=== PATIENT | male | born 1965 | race Caucasian/White ===

== ENCOUNTER 2017-06-01 13:04 | Emergency (ER) | payer MEDICARE, BC ==
[2017-06-01] MEDS: ONDANSETRON 4 MG INJ IV ×2 (16:10→19:11)
[2017-06-01] MEDS: morphine 4 MG/ML VIAL IV (16:10)
[2017-06-01 16:30] LABS: ADD MAN DIFF? NO
[2017-06-01 16:39] LABS: BASOPHILS % 0.5 % (0.0-2.0); EOSINOPHILS # 0.3 10^3/ul (0.0-0.5); EOSINOPHILS % 4.1 % (0.0-7.0); HEMATOCRIT 36.7 % (42.0-52.0); HEMOGLOBIN 12.3 g/dl (14.0-18.0); LYMPHOCYTES # 1.3 10^3/ul (0.8-2.9); LYMPHOCYTES % 16.3 % (15.0-51.0); MEAN CORPUSCULAR HEMOGLOBIN 32.4 pg (29.0-33.0); MEAN CORPUSCULAR HGB CONC 33.5 g/dl (32.0-37.0); MEAN CORPUSCULAR VOLUME 96.6 fl (82.0-101.0); MONOCYTE # 0.9 10^3/ul (0.3-0.9); MONOCYTES % 11.1 % (0.0-11.0); NEUTROPHIL # 5.3 10^3/ul (1.6-7.5); NEUTROPHILS % 67.7 % (39.0-77.0); PLATELET COUNT 188 10^3/UL (140-415); RED CELL DISTRIBUTION WIDTH 14.8 % (11.5-14.5)
[2017-06-01 16:39] LABS: WHITE BLOOD COUNT 7.8 10^3/ul (4.8-10.8)
[2017-06-01 17:02] LABS: INR 0.91; PROTIME 12.3 Sec (11.9-14.9)
[2017-06-01 17:03] LABS: PARTIAL THROMBOPLASTIN TIME 26.9 Sec (25.0-35.0)
[2017-06-01 17:07] LABS: ALANINE AMINOTRANSFERASE 46 IU/L (13-69); ALBUMIN 4.9 g/dl (3.3-4.9); ALKALINE PHOSPHATASE 121 IU/L (42-121); AMYLASE 111 U/L (11-123); ANION GAP 21 (8-16); ASPARTATE AMINO TRANSFERASE 34 IU/L (15-46); BLOOD UREA NITROGEN 21 mg/dl (7-20); CALCIUM 9.1 mg/dl (8.4-10.2); CARBON DIOXIDE 25 mmol/L (21-31); CHLORIDE 93 mmol/L (97-110); CREATININE 4.18 mg/dl (0.61-1.24); GLUCOSE 234 mg/dl (70-220); LIPASE 126 U/L (23-300); POTASSIUM 3.8 mmol/L (3.5-5.1); SODIUM 135 mmol/L (135-144); TOTAL PROTEIN 8.4 g/dl (6.1-8.1)
[2017-06-01 17:39] LABS: TROPONIN-I < 0.012 ng/ml (0.00-0.12)
[2017-06-01] MEDS: HYDROmorphONE 1 MG/ML SYG IV (19:11)
== END 2017-06-01 19:51 | disposition home or self-care (01) ==
LOC: E/R 13:04
DX: R10.12 Left upper quadrant pain (principal); E11.65 Type 2 diabetes mellitus with hyperglycemia; I12.0 Hypertensive chronic kidney disease with stage 5 chronic kidney disease or end stage renal disease; N18.6 End stage renal disease; Z79.82 Long term (current) use of aspirin; Z99.2 Dependence on renal dialysis
CPT/HCPCS: 74176; 80053; 82150; 83690; 84484; 85025; 85610; 85730; 93005; 96374; 96375; 96376; 99285-25

== ENCOUNTER 2017-08-21 20:31 | Inpatient (IN) | payer MEDICARE, BC ==
[2017-08-21] MEDS ORDERED: SOD CHLORIDE 0.9% 1,000 ML IV (21:01)
[2017-08-21] MEDS: ASPIRIN 325 MG TAB PO (21:19)
[2017-08-21] MEDS: morphine 4 MG/ML VIAL IV (21:19)
[2017-08-21] MEDS: ONDANSETRON 4 MG INJ IV (21:19)
[2017-08-21 21:36] LABS: ADD MAN DIFF? NO
[2017-08-21 21:44] LABS: WHITE BLOOD COUNT 7.5 10^3/ul (4.8-10.8)
[2017-08-21 21:44] LABS: BASOPHIL # 0.1 10^3/ul (0.0-0.1); BASOPHILS % 0.7 % (0.0-2.0); EOSINOPHILS # 0.3 10^3/ul (0.0-0.5); EOSINOPHILS % 3.8 % (0.0-7.0); HEMATOCRIT 34.6 % (42.0-52.0); HEMOGLOBIN 11.3 g/dl (14.0-18.0); LYMPHOCYTES # 1.5 10^3/ul (0.8-2.9); LYMPHOCYTES % 20.1 % (15.0-51.0); MEAN CORPUSCULAR HEMOGLOBIN 34.1 pg (29.0-33.0); MEAN CORPUSCULAR HGB CONC 32.7 g/dl (32.0-37.0); MEAN CORPUSCULAR VOLUME 104.5 fl (82.0-101.0); MEAN PLATELET VOLUME 10.4 fl (7.4-10.4); MONOCYTE # 0.9 10^3/ul (0.3-0.9); MONOCYTES % 12.5 % (0.0-11.0); NEUTROPHIL # 4.7 10^3/ul (1.6-7.5); NEUTROPHILS % 62.6 % (39.0-77.0); PLATELET COUNT 204 10^3/UL (140-415); RED BLOOD COUNT 3.31 10^6/ul (4.70-6.10); RED CELL DISTRIBUTION WIDTH 17.6 % (11.5-14.5)
[2017-08-21 21:56] LABS: INR 0.94; PROTIME 12.7 Sec (11.9-14.9)
[2017-08-21 21:57] LABS: PARTIAL THROMBOPLASTIN TIME 26.9 Sec (25.0-35.0)
[2017-08-21 22:00] LABS: ALANINE AMINOTRANSFERASE 25 IU/L (13-69); ALBUMIN 4.7 g/dl (3.3-4.9); ALBUMIN/GLOBULIN RATIO 1.38; ALKALINE PHOSPHATASE 90 IU/L (42-121); ANION GAP 23 (8-16); ASPARTATE AMINO TRANSFERASE 22 IU/L (15-46); BILIRUBIN,INDIRECT 0.1 mg/dl (0-1.1); BILIRUBIN,TOTAL 0.1 mg/dl (0.2-1.3); BLOOD UREA NITROGEN 45 mg/dl (7-20); CALCIUM 9.4 mg/dl (8.4-10.2); CARBON DIOXIDE 25 mmol/L (21-31); CHLORIDE 95 mmol/L (97-110); CREATINE KINASE 108 IU/L (23-200); GLUCOSE 164 mg/dl (70-220); POTASSIUM 4.1 mmol/L (3.5-5.1); SODIUM 139 mmol/L (135-144); TOTAL PROTEIN 8.1 g/dl (6.1-8.1)
[2017-08-21 22:11] LABS: B-TYPE NATRIURETIC PEPTIDE 5810 PG/ML (0-125); CK INDEX 1.9; CK-MB 2.05 ng/ml (0.0-2.4); TROPONIN-I 0.012 ng/ml (0.00-0.12)
[2017-08-21] MEDS ORDERED: ACETAMINOPHEN 325 MG TAB PO ×2 (23:00)
[2017-08-21] MEDS ORDERED: ONDANSETRON 4 MG INJ IV ×2 (23:00)
[2017-08-21] MEDS ORDERED: NACL 0.9% 3 ML SYG IV (23:00)
[2017-08-22] MEDS: morphine 2 MG INJ IV (04:45)
[2017-08-22] MEDS ORDERED: NITROGLYCERIN (SL) 0.4 MG TAB (05:26)
[2017-08-22] MEDS: NITROGLYCERIN (SL) 0.4 MG TAB SL (05:33)
[2017-08-22 06:16] LABS: ADD MAN DIFF? NO
[2017-08-22 06:36] LABS: WHITE BLOOD COUNT 7.5 10^3/ul (4.8-10.8)
[2017-08-22 06:36] LABS: BASOPHILS % 0.5 % (0.0-2.0); EOSINOPHILS # 0.3 10^3/ul (0.0-0.5); EOSINOPHILS % 3.4 % (0.0-7.0); HEMATOCRIT 32.9 % (42.0-52.0); HEMOGLOBIN 10.8 g/dl (14.0-18.0); LYMPHOCYTES # 1.5 10^3/ul (0.8-2.9); LYMPHOCYTES % 20.4 % (15.0-51.0); MEAN CORPUSCULAR HEMOGLOBIN 34.4 pg (29.0-33.0); MEAN CORPUSCULAR HGB CONC 32.8 g/dl (32.0-37.0); MEAN CORPUSCULAR VOLUME 104.8 fl (82.0-101.0); MEAN PLATELET VOLUME 10.6 fl (7.4-10.4); MONOCYTE # 0.8 10^3/ul (0.3-0.9); NEUTROPHIL # 4.9 10^3/ul (1.6-7.5); NEUTROPHILS % 64.4 % (39.0-77.0); PLATELET COUNT 204 10^3/UL (140-415); RED BLOOD COUNT 3.14 10^6/ul (4.70-6.10); RED CELL DISTRIBUTION WIDTH 17.7 % (11.5-14.5)
[2017-08-22 06:57] LABS: D-DIMER 533.64 ng/ml (<460)
[2017-08-22 07:29] LABS: CREATINE KINASE 81 IU/L (23-200)
[2017-08-22 07:32] LABS: ALANINE AMINOTRANSFERASE 24 IU/L (13-69); ALBUMIN 4.5 g/dl (3.3-4.9); ALBUMIN/GLOBULIN RATIO 1.73; ALKALINE PHOSPHATASE 79 IU/L (42-121); ANION GAP 24 (8-16); ASPARTATE AMINO TRANSFERASE 18 IU/L (15-46); BLOOD UREA NITROGEN 51 mg/dl (7-20); CALCIUM 9.5 mg/dl (8.4-10.2); CARBON DIOXIDE 28 mmol/L (21-31); CHLORIDE 96 mmol/L (97-110); CHOL/HDL RATIO 2.6 RATIO; CHOLESTEROL 102 mg/dl (100-200); CK INDEX 2.2; CREATININE 9.79 mg/dl (0.61-1.24); GLUCOSE 103 mg/dl (70-220); HDL CHOLESTEROL 38 mg/dl (28-71); LDL CHOLESTEROL,CALCULATED 19 mg/dl; MAGNESIUM 2.8 mg/dl (1.7-2.5); POTASSIUM 4.9 mmol/L (3.5-5.1); SODIUM 143 mmol/L (135-144); TOTAL PROTEIN 7.1 g/dl (6.1-8.1); TRIGLYCERIDES 227 mg/dl (0-149); TROPONIN-I 0.017 ng/ml (0.00-0.12)
[2017-08-22 07:36] LABS: CK-MB 1.75 ng/ml (0.0-2.4)
[2017-08-22 09:00] LABS: FOLATE > 20.0 ng/ml (2.8-20.0)
[2017-08-22 10:18] LABS: HEMOGLOBIN A1C 5.5 % (0-5.9)
[2017-08-22] MEDS: AMLODIPINE 10 MG TAB PO (10:54)
[2017-08-22] MEDS: CALCITRIOL 0.25 MCG CAP PO (10:54)
[2017-08-22] MEDS: CLOPIDOGREL 75 MG TAB PO (10:55)
[2017-08-22] MEDS: ASPIRIN (EC) 81 MG TAB PO (10:55)
[2017-08-22] MEDS: FAMOTIDINE 20 MG TAB PO (10:55)
[2017-08-22] MEDS: CALCIUM ACETATE 667 MG CAP PO ×2 (12:06→21:46)
[2017-08-22] MEDS: SEVELAMER CARBONATE 0.8 GM PKT PO ×2 (12:10→21:47)
[2017-08-22 13:09] LABS: CREATINE KINASE 81 IU/L (23-200)
[2017-08-22 13:24] LABS: CK-MB 1.65 ng/ml (0.0-2.4); TROPONIN-I < 0.012 ng/ml (0.00-0.12)
[2017-08-22 15:08] LABS: HEPATITIS B SURFACE ANTIGEN NEGATIVE (NEGATIVE)
[2017-08-22] MEDS: METOPROLOL 5 MG INJ IV (18:02)
[2017-08-22] MEDS: IODIXANOL LOCM 50 ML BTL (18:19)
[2017-08-22] MEDS: METOPROLOL 100 MG TAB (19:03)
[2017-08-22] MEDS: METOPROLOL 50 MG TAB PO (19:04)
[2017-08-22] MEDS: DILTIAZEM 25 MG INJ IV ×2 (20:13→20:27)
[2017-08-22] MEDS: SOD CHLORIDE 0.9% 100 ML (21:00)
[2017-08-22] MEDS: IODIXANOL LOCM 100 ML BTL (21:00)
[2017-08-22] MEDS: NITROGLYCERIN AEROSOL (4.9 GM) (21:06)
[2017-08-22] MEDS: ATORVASTATIN 20 MG TAB PO (21:45)
[2017-08-22] MEDS: DOCUSATE SODIUM 100 MG CAP PO (21:46)
[2017-08-22] MEDS: METOPROLOL 25 MG TAB PO (21:50)
[2017-08-22] MEDS: HEPARIN 5,000 UNIT/0.5 ML VIAL SC (21:53)
[2017-08-23] MEDS: EPOETIN 3000 UNITS/1 ML INJ (ESRD) SC (00:14)
[2017-08-23 07:32] LABS: ADD MAN DIFF? NO
[2017-08-23 07:39] LABS: WHITE BLOOD COUNT 7.6 10^3/ul (4.8-10.8)
[2017-08-23 07:39] LABS: BASOPHILS % 0.5 % (0.0-2.0); EOSINOPHILS # 0.2 10^3/ul (0.0-0.5); EOSINOPHILS % 2.8 % (0.0-7.0); HEMATOCRIT 34.1 % (42.0-52.0); HEMOGLOBIN 11.4 g/dl (14.0-18.0); LYMPHOCYTES # 1.2 10^3/ul (0.8-2.9); LYMPHOCYTES % 16.1 % (15.0-51.0); MEAN CORPUSCULAR HEMOGLOBIN 34.7 pg (29.0-33.0); MEAN CORPUSCULAR HGB CONC 33.4 g/dl (32.0-37.0); MEAN CORPUSCULAR VOLUME 103.6 fl (82.0-101.0); MEAN PLATELET VOLUME 10.8 fl (7.4-10.4); MONOCYTES % 13.8 % (0.0-11.0); NEUTROPHILS % 66.7 % (39.0-77.0); PLATELET COUNT 218 10^3/UL (140-415); RED BLOOD COUNT 3.29 10^6/ul (4.70-6.10); RED CELL DISTRIBUTION WIDTH 17.5 % (11.5-14.5)
[2017-08-23 08:03] LABS: ANION GAP 20 (8-16); BLOOD UREA NITROGEN 38 mg/dl (7-20); CALCIUM 9.4 mg/dl (8.4-10.2); CARBON DIOXIDE 26 mmol/L (21-31); CHLORIDE 98 mmol/L (97-110); GLUCOSE 103 mg/dl (70-220); POTASSIUM 4.7 mmol/L (3.5-5.1); SODIUM 139 mmol/L (135-144)
[2017-08-23 08:04] LABS: MAGNESIUM 2.4 mg/dl (1.7-2.5)
[2017-08-23 08:04] LABS: PHOSPHORUS 4.7 mg/dl (2.5-4.9)
[2017-08-23] MEDS: DOCUSATE SODIUM 100 MG CAP PO ×2 (08:39→21:15)
[2017-08-23] MEDS: CLOPIDOGREL 75 MG TAB PO (08:40)
[2017-08-23] MEDS: AMLODIPINE 10 MG TAB PO (08:40)
[2017-08-23] MEDS: METOPROLOL 25 MG TAB PO ×2 (08:42→21:14)
[2017-08-23] MEDS: ASPIRIN (EC) 81 MG TAB PO (08:43)
[2017-08-23] MEDS: FAMOTIDINE 20 MG TAB PO (08:43)
[2017-08-23] MEDS: SEVELAMER CARBONATE 0.8 GM PKT PO ×3 (08:43→18:04)
[2017-08-23] MEDS: HEPARIN 5,000 UNIT/0.5 ML VIAL SC ×2 (08:50→21:22)
[2017-08-23] MEDS: CALCIUM ACETATE 667 MG CAP PO ×3 (09:51→18:05)
[2017-08-23] MEDS: CALCITRIOL 0.25 MCG CAP PO (09:51)
[2017-08-23] MEDS: morphine 2 MG INJ IV ×2 (09:53→21:45)
[2017-08-23] MEDS: ISOSORBIDE MONONITRATE(SR)30 MG TAB PO (12:25)
[2017-08-23] MEDS: ATORVASTATIN 20 MG TAB PO (21:15)
[2017-08-24 08:06] LABS: ADD MAN DIFF? NO
[2017-08-24 08:11] LABS: WHITE BLOOD COUNT 6.9 10^3/ul (4.8-10.8)
[2017-08-24 08:11] LABS: BASOPHILS % 0.3 % (0.0-2.0); EOSINOPHILS # 0.3 10^3/ul (0.0-0.5); EOSINOPHILS % 3.8 % (0.0-7.0); HEMATOCRIT 32.2 % (42.0-52.0); HEMOGLOBIN 10.8 g/dl (14.0-18.0); LYMPHOCYTES # 1.3 10^3/ul (0.8-2.9); LYMPHOCYTES % 18.7 % (15.0-51.0); MEAN CORPUSCULAR HEMOGLOBIN 34.8 pg (29.0-33.0); MEAN CORPUSCULAR HGB CONC 33.5 g/dl (32.0-37.0); MEAN CORPUSCULAR VOLUME 103.9 fl (82.0-101.0); MEAN PLATELET VOLUME 10.4 fl (7.4-10.4); MONOCYTES % 15.2 % (0.0-11.0); NEUTROPHIL # 4.2 10^3/ul (1.6-7.5); NEUTROPHILS % 61.9 % (39.0-77.0); PLATELET COUNT 221 10^3/UL (140-415); RED CELL DISTRIBUTION WIDTH 17.5 % (11.5-14.5)
[2017-08-24 08:25] LABS: ANION GAP 22 (8-16); BLOOD UREA NITROGEN 52 mg/dl (7-20); CALCIUM 9.4 mg/dl (8.4-10.2); CARBON DIOXIDE 27 mmol/L (21-31); CHLORIDE 95 mmol/L (97-110); CREATININE 10.28 mg/dl (0.61-1.24); GLUCOSE 130 mg/dl (70-220); POTASSIUM 4.6 mmol/L (3.5-5.1); SODIUM 139 mmol/L (135-144)
[2017-08-24 08:27] LABS: MAGNESIUM 2.6 mg/dl (1.7-2.5)
[2017-08-24] MEDS: DOCUSATE SODIUM 100 MG CAP PO ×2 (08:52→20:31)
[2017-08-24] MEDS: SEVELAMER CARBONATE 0.8 GM PKT PO ×3 (08:52→17:38)
[2017-08-24] MEDS: CALCITRIOL 0.25 MCG CAP PO (08:52)
[2017-08-24] MEDS: CLOPIDOGREL 75 MG TAB PO (08:52)
[2017-08-24] MEDS: AMLODIPINE 10 MG TAB PO (08:53)
[2017-08-24] MEDS: ASPIRIN (EC) 81 MG TAB PO (08:54)
[2017-08-24] MEDS: FAMOTIDINE 20 MG TAB PO (08:54)
[2017-08-24] MEDS: ISOSORBIDE MONONITRATE(SR)30 MG TAB PO (08:54)
[2017-08-24] MEDS: HEPARIN 5,000 UNIT/0.5 ML VIAL SC ×2 (08:55→20:36)
[2017-08-24] MEDS: CALCIUM ACETATE 667 MG CAP PO ×3 (08:55→17:38)
[2017-08-24] MEDS: morphine 2 MG INJ IV (08:56)
[2017-08-24] MEDS: METOPROLOL 25 MG TAB PO ×2 (08:59→20:32)
[2017-08-24] MEDS: ATORVASTATIN 20 MG TAB PO (20:31)
[2017-08-25] MEDS: morphine 2 MG INJ IV (06:01)
[2017-08-25 06:26] LABS: ADD MAN DIFF? NO
[2017-08-25 06:29] LABS: WHITE BLOOD COUNT 7.7 10^3/ul (4.8-10.8)
[2017-08-25 06:29] LABS: BASOPHILS % 0.4 % (0.0-2.0); EOSINOPHILS # 0.3 10^3/ul (0.0-0.5); EOSINOPHILS % 3.6 % (0.0-7.0); HEMOGLOBIN 10.3 g/dl (14.0-18.0); LYMPHOCYTES # 1.1 10^3/ul (0.8-2.9); LYMPHOCYTES % 13.7 % (15.0-51.0); MEAN CORPUSCULAR HEMOGLOBIN 34.4 pg (29.0-33.0); MEAN CORPUSCULAR HGB CONC 33.2 g/dl (32.0-37.0); MEAN CORPUSCULAR VOLUME 103.7 fl (82.0-101.0); MEAN PLATELET VOLUME 10.7 fl (7.4-10.4); MONOCYTE # 0.9 10^3/ul (0.3-0.9); NEUTROPHIL # 5.4 10^3/ul (1.6-7.5); NEUTROPHILS % 70.2 % (39.0-77.0); NUCLEATED RED BLOOD CELLS% 0.3 /100WBC (0.0-0.0); PLATELET COUNT 236 10^3/UL (140-415); RED BLOOD COUNT 2.99 10^6/ul (4.70-6.10); RED CELL DISTRIBUTION WIDTH 17.6 % (11.5-14.5)
[2017-08-25] MEDS: HEPARIN 5,000 UNIT/0.5 ML VIAL SC ×2 (07:06→22:00)
[2017-08-25 07:18] LABS: ANION GAP 23 (8-16); BLOOD UREA NITROGEN 62 mg/dl (7-20); CALCIUM 9.4 mg/dl (8.4-10.2); CARBON DIOXIDE 26 mmol/L (21-31); CHLORIDE 92 mmol/L (97-110); CREATININE 12.21 mg/dl (0.61-1.24); GLUCOSE 125 mg/dl (70-220); SODIUM 136 mmol/L (135-144)
[2017-08-25 07:20] LABS: PHOSPHORUS 4.6 mg/dl (2.5-4.9)
[2017-08-25 07:20] LABS: MAGNESIUM 2.6 mg/dl (1.7-2.5)
[2017-08-25] MEDS: SEVELAMER CARBONATE 0.8 GM PKT PO ×3 (07:55→17:55)
[2017-08-25] MEDS: ISOSORBIDE MONONITRATE(SR)30 MG TAB PO ×2 (09:00→18:24)
[2017-08-25] MEDS: AMLODIPINE 10 MG TAB PO (09:00)
[2017-08-25] MEDS: CLOPIDOGREL 75 MG TAB PO (09:00)
[2017-08-25] MEDS: METOPROLOL 25 MG TAB PO ×2 (09:00→18:23)
[2017-08-25] MEDS: CALCITRIOL 0.25 MCG CAP PO (10:02)
[2017-08-25] MEDS: ASPIRIN (EC) 81 MG TAB PO (10:02)
[2017-08-25] MEDS: FAMOTIDINE 20 MG TAB PO (10:02)
[2017-08-25] MEDS: CALCIUM ACETATE 667 MG CAP PO ×3 (10:03→17:55)
[2017-08-25] MEDS: DOCUSATE SODIUM 100 MG CAP PO ×2 (10:03→21:48)
[2017-08-25] MEDS ORDERED: HEPARIN 1000 UNITS/ML 10 ML INJ (16:04)
[2017-08-25] MEDS ORDERED: IODIXANOL LOCM 100 ML BTL (16:04)
[2017-08-25] MEDS ORDERED: LIDOCAINE 1% (MDV) 20 ML INJ (16:04)
[2017-08-25] MEDS ORDERED: FENTAnyl 50 MCG/ML VIAL (16:05)
[2017-08-25] MEDS ORDERED: VERAPAMIL 5 MG INJ (16:05)
[2017-08-25] MEDS ORDERED: MIDAZOLAM 1 MG/ML 2 ML INJ (16:05)
[2017-08-25] MEDS ORDERED: NITROGLYCERIN (IC) 100 MCG/ML INJ ×2 (16:05→16:07)
[2017-08-25] MEDS ORDERED: morphine 2 MG INJ IV (17:00)
[2017-08-25] MEDS: ATORVASTATIN 20 MG TAB PO (21:48)
[2017-08-26] MEDS: SEVELAMER CARBONATE 0.8 GM PKT PO ×3 (08:12→17:00)
[2017-08-26] MEDS: ASPIRIN (EC) 81 MG TAB PO (08:13)
[2017-08-26] MEDS: DOCUSATE SODIUM 100 MG CAP PO ×2 (08:13→20:32)
[2017-08-26] MEDS: FAMOTIDINE 20 MG TAB PO (08:13)
[2017-08-26] MEDS: CALCITRIOL 0.25 MCG CAP PO (08:13)
[2017-08-26] MEDS: CLOPIDOGREL 75 MG TAB PO (08:14)
[2017-08-26] MEDS: AMLODIPINE 10 MG TAB PO (08:15)
[2017-08-26] MEDS: CALCIUM ACETATE 667 MG CAP PO ×3 (08:15→17:00)
[2017-08-26] MEDS: METOPROLOL 25 MG TAB PO ×2 (08:15→20:31)
[2017-08-26] MEDS: HEPARIN 5,000 UNIT/0.5 ML VIAL SC ×2 (08:32→20:39)
[2017-08-26 15:57] LABS: ADD MAN DIFF? NO
[2017-08-26 16:18] LABS: ANION GAP 23 (8-16); BLOOD UREA NITROGEN 44 mg/dl (7-20); CALCIUM 9.7 mg/dl (8.4-10.2); CARBON DIOXIDE 29 mmol/L (21-31); CHLORIDE 92 mmol/L (97-110); CREATININE 10.41 mg/dl (0.61-1.24); GLUCOSE 133 mg/dl (70-220); POTASSIUM 5.3 mmol/L (3.5-5.1); SODIUM 139 mmol/L (135-144)
[2017-08-26 16:26] LABS: WHITE BLOOD COUNT 8.7 10^3/ul (4.8-10.8)
[2017-08-26 16:26] LABS: BASOPHIL # 0.1 10^3/ul (0.0-0.1); BASOPHILS % 0.6 % (0.0-2.0); EOSINOPHILS # 0.3 10^3/ul (0.0-0.5); EOSINOPHILS % 2.9 % (0.0-7.0); HEMATOCRIT 36.6 % (42.0-52.0); HEMOGLOBIN 11.9 g/dl (14.0-18.0); LYMPHOCYTES # 1.3 10^3/ul (0.8-2.9); LYMPHOCYTES % 15.2 % (15.0-51.0); MEAN CORPUSCULAR HEMOGLOBIN 34.6 pg (29.0-33.0); MEAN CORPUSCULAR HGB CONC 32.5 g/dl (32.0-37.0); MEAN CORPUSCULAR VOLUME 106.4 fl (82.0-101.0); MEAN PLATELET VOLUME 10.2 fl (7.4-10.4); MONOCYTES % 11.5 % (0.0-11.0); NEUTROPHIL # 6.1 10^3/ul (1.6-7.5); NEUTROPHILS % 69.5 % (39.0-77.0); PLATELET COUNT 290 10^3/UL (140-415); RED BLOOD COUNT 3.44 10^6/ul (4.70-6.10); RED CELL DISTRIBUTION WIDTH 17.9 % (11.5-14.5)
[2017-08-26] MEDS: ATORVASTATIN 20 MG TAB PO (20:31)
[2017-08-27] MEDS: hydrALAzine 20 MG INJ IV (04:58)
[2017-08-27 07:01] LABS: ADD MAN DIFF? NO
[2017-08-27 07:04] LABS: WHITE BLOOD COUNT 7.9 10^3/ul (4.8-10.8)
[2017-08-27 07:04] LABS: BASOPHILS % 0.4 % (0.0-2.0); EOSINOPHILS # 0.3 10^3/ul (0.0-0.5); EOSINOPHILS % 3.6 % (0.0-7.0); HEMATOCRIT 34.3 % (42.0-52.0); HEMOGLOBIN 11.3 g/dl (14.0-18.0); LYMPHOCYTES # 1.3 10^3/ul (0.8-2.9); LYMPHOCYTES % 16.3 % (15.0-51.0); MEAN CORPUSCULAR HGB CONC 32.9 g/dl (32.0-37.0); MEAN CORPUSCULAR VOLUME 106.2 fl (82.0-101.0); MEAN PLATELET VOLUME 10.2 fl (7.4-10.4); MONOCYTES % 13.1 % (0.0-11.0); NEUTROPHIL # 5.2 10^3/ul (1.6-7.5); NEUTROPHILS % 66.3 % (39.0-77.0); PLATELET COUNT 264 10^3/UL (140-415); RED BLOOD COUNT 3.23 10^6/ul (4.70-6.10); RED CELL DISTRIBUTION WIDTH 17.5 % (11.5-14.5)
[2017-08-27 07:34] LABS: ANION GAP 22 (8-16); BLOOD UREA NITROGEN 57 mg/dl (7-20); CALCIUM 9.2 mg/dl (8.4-10.2); CARBON DIOXIDE 27 mmol/L (21-31); CHLORIDE 95 mmol/L (97-110); CREATININE 11.83 mg/dl (0.61-1.24); GLUCOSE 111 mg/dl (70-220); POTASSIUM 5.2 mmol/L (3.5-5.1); SODIUM 139 mmol/L (135-144)
[2017-08-27] MEDS: CALCIUM ACETATE 667 MG CAP PO ×3 (08:43→17:09)
[2017-08-27] MEDS: SEVELAMER CARBONATE 0.8 GM PKT PO ×3 (08:43→17:09)
[2017-08-27] MEDS: DOCUSATE SODIUM 100 MG CAP PO (08:44)
[2017-08-27] MEDS: ASPIRIN (EC) 81 MG TAB PO (08:44)
[2017-08-27] MEDS: CLOPIDOGREL 75 MG TAB PO (08:44)
[2017-08-27] MEDS: CALCITRIOL 0.25 MCG CAP PO (08:44)
[2017-08-27] MEDS: FAMOTIDINE 20 MG TAB PO (08:44)
[2017-08-27] MEDS: METOPROLOL 25 MG TAB PO (08:45)
[2017-08-27] MEDS: AMLODIPINE 10 MG TAB PO (08:45)
[2017-08-27] MEDS: ISOSORBIDE MONONITRATE(SR)30 MG TAB PO (08:45)
[2017-08-27] MEDS: HEPARIN 5,000 UNIT/0.5 ML VIAL SC (08:54)
== END 2017-08-27 20:40 | disposition home or self-care (01) | DRG 286 ==
LOC: TEL 22:36 → E/R 20:31 → TEL 08-22 03:55
PROC: 4A023N7 Measurement of Cardiac Sampling and Pressure, Left Heart, Percutaneous Approach (ICD-10-PCS; principal; 2017-08-25 15:00)
PROC: B211YZZ Fluoroscopy of Multiple Coronary Arteries using Other Contrast (ICD-10-PCS; 2017-08-25 15:00)
PROC: 5A1D70Z Performance of Urinary Filtration, Intermittent, Less than 6 Hours Per Day (ICD-10-PCS; 2017-08-25 16:08)
PROC: 5A1D70Z Performance of Urinary Filtration, Intermittent, Less than 6 Hours Per Day (ICD-10-PCS; 2017-08-25 16:08)
PROC: 5A1D70Z Performance of Urinary Filtration, Intermittent, Less than 6 Hours Per Day (ICD-10-PCS; 2017-08-25 16:08)
DX: R07.89 Other chest pain (principal); N18.6 End stage renal disease; I12.0 Hypertensive chronic kidney disease with stage 5 chronic kidney disease or end stage renal disease; E11.22 Type 2 diabetes mellitus with diabetic chronic kidney disease; I25.10 Atherosclerotic heart disease of native coronary artery without angina pectoris; Z99.2 Dependence on renal dialysis; D63.1 Anemia in chronic kidney disease; Z95.5 Presence of coronary angioplasty implant and graft; E78.5 Hyperlipidemia, unspecified; Z79.02 Long term (current) use of antithrombotics/antiplatelets; Z79.82 Long term (current) use of aspirin; E11.51 Type 2 diabetes mellitus with diabetic peripheral angiopathy without gangrene; D53.9 Nutritional anemia, unspecified; Z87.891 Personal history of nicotine dependence
CPT/HCPCS: 71045; 75574; 78582; 80048; 80053; 80061; 82550; 82553; 82607; 82746; 82962; 83036; 83735; 83880; 84100; 84443; 84484; 85025; 85378; 85610; 85730; 87340; 90935; 93005; 93306; 93458; 93970; 96374; 96375; 99285-25